=== PATIENT | male | born 1970 | race African-American/Black ===

== ENCOUNTER 2019-10-22 14:07 | Observation (INO) | payer OTHER, SELFPAY ==
[2019-10-22] MEDS ORDERED: Morphine 4 MG/ML VIAL ONE (14:15)
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
[2019-10-22] MEDS ORDERED: Adacel (T-DAP) 0.5 ML SYRINGE ONE (14:39)
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
[2019-10-22 15:09] LABS: INR-International Normal Ratio 0.9; Prothrombin Time 12.4 SEC (12.0-14.7)
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
[2019-10-22] MEDS ORDERED: Lidocaine 1% w/Epinephrine 1:100K 20 ML VIAL ONE ×2 (15:19→16:01)
[2019-10-22] MEDS ORDERED: Iopamidol-370 76% 500 ML 1 ML ONE (16:31)
[2019-10-22 18:10] LABS: #Lymphocytes 1.5 thou/uL (1.20-3.40); #Monocytes 0.7 thou/uL (0.11-0.59); #Neutrophils 11.4 thou/uL (1.40-6.50); %Eosinophils 0.3 % (0.0-10.0); %Monocytes 5.4 % (0.0-10.0); %Neutrophils 83.3 % (42.0-75.0); Hemoglobin 15.4 g/dL (14.0-18.0); Mean Corpuscular HGB CONC 33.2 g/dL (32.0-36.0); Mean Corpuscular Hemoglobin 32.2 pg (27.0-31.0); Mean Corpuscular Volume 96.9 fL (78.0-98.0); Mean Platelet Volume 8.6 fL (7.4-10.4); Platelet Count 194 thou/uL (130-400); RBC Distribution Width 11.7 % (11.5-14.5); Red Blood Cell (RBC) Count 4.78 mill/uL (4.70-6.10); White Blood Cell (WBC) Count 13.6 thou/uL (4.8-10.8)
[2019-10-22 18:25] LABS: PTT 23.2 SEC (22.9-36.1)
[2019-10-22 18:31] LABS: ALT (SGPT) 39 U/L (8-55); AST (SGOT) 32 U/L (5-34); Albumin 4.7 g/dL (3.5-5.0); Alkaline Phosphatase 71 U/L (40-110); Anion Gap 16 mmol/L (10-20); BUN (Urea Nitrogen) 11 mg/dL (8.9-20.6); Bilirubin, Total 0.4 mg/dL (0.2-1.2); Calc. Creatinine Clearance 0 mL/min (70-130); Calcium 9.4 mg/dL (7.8-10.44); Carbon Dioxide 22 mmol/L (22-29); Chloride 106 mmol/L (98-107); Estimated GFR-MDRD 87; Globulin 2.9 g/dL (2.4-3.5); Glucose 106 mg/dL (70-105); Potassium 4.1 mmol/L (3.5-5.1); Protein, Total 7.6 g/dL (6.0-8.3); Sodium 140 mmol/L (136-145)
[2019-10-22] MEDS ORDERED: Ondansetron PF 4 MG/2 ML Vial IVP PRN (19:41)
[2019-10-22] MEDS ORDERED: Dextrose 50% Abboject 50 ML SYRINGE SLOW IVP PRN (19:41)
[2019-10-22] MEDS ORDERED: Dextrose 5% in Water 1,000 ML IV PRN (19:41)
[2019-10-22] MEDS ORDERED: Ondansetron ODT 4 MG TAB PO PRN (19:41)
[2019-10-22] MEDS ORDERED: Sodium Chloride 0.9% 1,000 ML IV SCH (19:41)
[2019-10-22] MEDS ORDERED: traMADol HCl 50 MG TAB PO PRN ×2 (19:41)
[2019-10-22] MEDS: Famotidine 20 MG TAB PO SCH (20:17)
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
[2019-10-22 22:50] VITALS: BMI 31.4
[2019-10-22] MEDS: Acetaminophen 500 MG TAB PO SCH (23:42)
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
[2019-10-23 05:14] LABS: #Basophils 0.1 thou/uL (0.0-0.2); #Lymphocytes 1.9 thou/uL (1.20-3.40); %Basophils 0.5 % (0.0-1.0); %Eosinophils 0.2 % (0.0-10.0); %Lymphocytes 17.7 % (21.0-51.0); %Monocytes 8.9 % (0.0-10.0); %Neutrophils 72.9 % (42.0-75.0); Hemoglobin 13.2 g/dL (14.0-18.0); Mean Corpuscular HGB CONC 32.9 g/dL (32.0-36.0); Mean Corpuscular Volume 97.4 fL (78.0-98.0); Mean Platelet Volume 8.9 fL (7.4-10.4); Platelet Count 175 thou/uL (130-400); RBC Distribution Width 11.8 % (11.5-14.5); Red Blood Cell (RBC) Count 4.13 mill/uL (4.70-6.10); White Blood Cell (WBC) Count 10.9 thou/uL (4.8-10.8)
[2019-10-23] MEDS: Acetaminophen 500 MG TAB PO SCH ×2 (05:19→12:29)
[2019-10-23 05:34] LABS: Anion Gap 9 mmol/L (10-20); BUN (Urea Nitrogen) 11 mg/dL (8.9-20.6); Calc. Creatinine Clearance 102 mL/min (70-130); Calcium 8.7 mg/dL (7.8-10.44); Carbon Dioxide 22 mmol/L (22-29); Chloride 112 mmol/L (98-107); Estimated GFR-MDRD 86; Glucose 114 mg/dL (70-105); Phosphorus 2.7 mg/dL (2.3-4.7); Potassium 4.4 mmol/L (3.5-5.1); Sodium 139 mmol/L (136-145)
[2019-10-23 07:13] VITALS: TEMP 98.5
[2019-10-23] MEDS: Famotidine 20 MG TAB PO SCH (08:00)
[2019-10-23 11:44] VITALS: BP 112/68
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
== END 2019-10-23 13:30 | disposition home or self-care (01) ==
LOC: ERS 14:07 → SURG A 17:20
PROVIDERS: ADMIT Surgery; ATTEND Surgery
DX: S06.0X1A Concussion with loss of consciousness of 30 minutes or less, initial encounter (principal); S01.01XA Laceration without foreign body of scalp, initial encounter; S01.111A Laceration without foreign body of right eyelid and periocular area, initial encounter; V89.2XXA Person injured in unspecified motor-vehicle accident, traffic, initial encounter; Y92.411 Interstate highway as the place of occurrence of the external cause
CPT/HCPCS: 12032; 36415; 70450; 71260; 72125; 74177; 80048; 80053; 83735; 84100; 85025; 85610; 85730; 90471; 90715; 96361; 96365; 96375; G0378; G0390; J0690; J2270; Q9967